=== PATIENT | female | born 1995 | race Caucasian/White ===

== ENCOUNTER 2017-01-14 20:58 | Emergency (ER) | payer OTHER ==
--- NOTE | 2017-01-14 22:37 | ED NURSING NOTES ---
Clinical Report - Nurses [facility] [address] [place] [address] 01/14/2017 21:00 Patient: BOB OLIVARES TRIAGE Triage time 2100. Acuity: LEVEL 4. Chief Complaint: FALL (pt fell over babygate and down 3 stairs ont concreate with left side of chest wall event occured approx 2 weeks ago. c/o increased pain with deep breathing, coughing or movement). --21:12 Darya Gibson R.N. 21:00 01/14/17. BP: 138/83. HR: 96. RR: 18. O2 saturation: 97%. Temp: 98.2 F. Pain level now: 08/01. --21:12 Darya Gibson R.N. Weight: 84.8 kg stated. Height/Length: 63 inches Per Patient. BMI: 33.1. --21:11 Darya Gibson R.N. Allergies Unknown. --13:18 Uri Smiley R.N. History Arrived by private vehicle. Historian: patient. Accompanied by family. Primary physician (izaiah). This occurred (2 weeks ago). ( c/o pain to left rib area). No loss of consciousness. PAST MEDICAL HX: Last normal menstrual period- 3weeks. SURGERY HX: Cholecystectomy. SOCIAL HX: Light tobacco smoker (cigarette)- less than 1/2 a pack per day. Occasional alcohol use. History of drug use: marijuana. --21:12 Darya Gibson R.N. PROBLEMS: Back Pain. Sprain. Cellulitis. Pharyngitis. Asthma. Raynaud's Phenomenon. Headaches. Fibromyalgia. Juvenile Rheumatoid Arthritis. --21:09 Darya Gibson R.N. Interventions ID band on patient. To treatment room. --21:12 Darya Gibson R.N. PHYSICAL ASSESSMENT 21:00. Ambulatory to room. GENERAL / NEURO / PSYCH: Alert. Oriented X 4. Appears in no acute distress. RESPIRATORY: Respirations not labored. ( pain to left rib area, hurts more with deep breath or cough). CVS: Capillary refill less than 2 seconds. GI / : Abdomen soft. SKIN: Skin is warm and dry. --21:13 Darya Gibson R.N. NURSING PROGRESS NOTES 21:00. Extremity elevated. Patient gowned. Reassurance given. Patient identifiers checked. Call light placed in reach. Side rails up. Bed placed in lowest position. Patient ready for evaluation- chart flagged. --21:12 Darya Gibson R.N. 21:19 01/14/17. Care transferred and report given (Uri Arenas, EDRN). --21:19 Darya Gibson R.N. 22:42 01/14/2017 Hydrocodone-APAP (Hydrocodone-Acetaminophen) PO 5/325 mg Tablets 1 tab given. Allergies verified, confirmed 5 rights and sedative warning given to the patient. --22:42 Uri Smiley R.N. DISPOSITION / DISCHARGE Departure time: 22:48 Jan 14 2017. Condition at departure: improved. No learning barriers present. Discharge instructions provided and reviewed with the patient. Reviewed warnings. Reviewed medication(s). Treatments reviewed. Patient verbalized understanding. Written instructions provided in Icelandic. The patient was discharged by the nurse practitioner. She was discharged home and accompanied by family. She left the Emergency Department ambulatory and via private vehicle. Family member driving. --22:48 Uri Smiley R.N. 22:47 01/14/17. BP: 146/96. HR: 86. RR: 18. O2 saturation: 100%. Temp: 98.5 F. Pain level now 6/10. --22:48 Uri Smiley R.N. Locked/Released at 01/23/2017 13:19 by Uri Smiley R.N.
--- NOTE | 2017-01-14 22:37 | ED ORDER SUMMARY ---
..... Patient: BOB OLIVARES OrderSheet [facility] VisitID: [id number] [address] [place] [address] 21y, F Registration Date/Time: 01/14/2017 ORDER SHEET Weight: 84.8 kg (stated) Allergies: Unknown GENERAL ORDERS: Ribs Unilat w PA Chest Left Urgent (21:23 01/14/2017 HBivens A.R.N.P.) (Ack 21:32 Padmaja ER Correctional Officer Captain) (21:40 [facility]) MEDICATION ORDERS: Hydrocodone-APAP PO 5/325 mg (NOW, HIGH ALERT MEDICATION) (22:37 01/14/2017 HBivens A.R.N.P.) (22:42 Marquez R.N.) IV FLUIDS: ORDER SHEET NOTES: [Electronically signed by Maria CaicedoR.N.P. (13:35 01/15/2017)] [Electronically signed by Uri Smiley RKenjiNKenji (13:19 01/23/2017)] [Electronically locked/signed by Uri SmileyNKenji (13:19 01/23/2017)]
--- NOTE | 2017-01-14 22:37 | ED NURSING NOTES ---
Clinical Report - Nurses [facility] [address] [place] [address] 01/14/2017 21:00 Patient: BOB OLIVARES TRIAGE Triage time 2100. Acuity: LEVEL 4. Chief Complaint: FALL (pt fell over babygate and down 3 stairs ont concreate with left side of chest wall event occured approx 2 weeks ago. c/o increased pain with deep breathing, coughing or movement). --21:12 Darya Gibson R.N. 21:00 01/14/17. BP: 138/83. HR: 96. RR: 18. O2 saturation: 97%. Temp: 98.2 F. Pain level now: 08/01. --21:12 Darya Gibson R.N. Weight: 84.8 kg stated. Height/Length: 63 inches Per Patient. BMI: 33.1. --21:11 Darya Gibson R.N. Allergies Unknown. --13:18 Uri Smiley R.N. History Arrived by private vehicle. Historian: patient. Accompanied by family. Primary physician (izaiah). This occurred (2 weeks ago). ( c/o pain to left rib area). No loss of consciousness. PAST MEDICAL HX: Last normal menstrual period- 3weeks. SURGERY HX: Cholecystectomy. SOCIAL HX: Light tobacco smoker (cigarette)- less than 1/2 a pack per day. Occasional alcohol use. History of drug use: marijuana. --21:12 Darya Gibson R.N. PROBLEMS: Back Pain. Sprain. Cellulitis. Pharyngitis. Asthma. Raynaud's Phenomenon. Headaches. Fibromyalgia. Juvenile Rheumatoid Arthritis. --21:09 Darya Gibson R.N. Interventions ID band on patient. To treatment room. --21:12 Darya Gibson R.N. PHYSICAL ASSESSMENT 21:00. Ambulatory to room. GENERAL / NEURO / PSYCH: Alert. Oriented X 4. Appears in no acute distress. RESPIRATORY: Respirations not labored. ( pain to left rib area, hurts more with deep breath or cough). CVS: Capillary refill less than 2 seconds. GI / : Abdomen soft. SKIN: Skin is warm and dry. --21:13 Darya Gibson R.N. NURSING PROGRESS NOTES 21:00. Extremity elevated. Patient gowned. Reassurance given. Patient identifiers checked. Call light placed in reach. Side rails up. Bed placed in lowest position. Patient ready for evaluation- chart flagged. --21:12 Darya Gibson R.N. 21:19 01/14/17. Care transferred and report given (Uri Arenas, EDRN). --21:19 Darya Gibson R.N. 22:42 01/14/2017 Hydrocodone-APAP (Hydrocodone-Acetaminophen) PO 5/325 mg Tablets 1 tab given. Allergies verified, confirmed 5 rights and sedative warning given to the patient. --22:42 Uri Smiley R.N. DISPOSITION / DISCHARGE Departure time: 22:48 Jan 14 2017. Condition at departure: improved. No learning barriers present. Discharge instructions provided and reviewed with the patient. Reviewed warnings. Reviewed medication(s). Treatments reviewed. Patient verbalized understanding. Written instructions provided in Khmer. The patient was discharged by the nurse practitioner. She was discharged home and accompanied by family. She left the Emergency Department ambulatory and via private vehicle. Family member driving. --22:48 Uri Smiley R.N. 22:47 01/14/17. BP: 146/96. HR: 86. RR: 18. O2 saturation: 100%. Temp: 98.5 F. Pain level now 6/10. --22:48 Uri Smiley R.N. Locked/Released at 01/23/2017 13:19 by Uri Smiley R.N.
--- NOTE | 2017-01-14 22:37 | ED CLINICAL REPORT ---
Clinical Report - Physicians/Mid Levels [facility] [address] [place] [address] 01/14/2017 21:00 Patient: BOB OLIVARES Time Seen: 21:14; initial patient contact, initial documentation, patient care assumed. Arrived- By private vehicle. Historian- patient. HISTORY OF PRESENT ILLNESS Chief Complaint: Injury to CHEST. Location of injuries- chest. The injury occurred about 2 weeks ago. Fell down a few stairs while walking and landed on a concrete surface. The patient complains of severe pain. No blow to the head, neck pain, loss of consciousness or seizure. Not dazed. states she fell down a few stairs and went to another er after the incident, no xrays done, given rx meloxicam and something else, still hurts, no f/u. REVIEW OF SYSTEMS No numbness, weakness or laceration. She has had chest pain. All systems otherwise negative, except as recorded above. PAST HISTORY See nurses notes. PROBLEMS: Back Pain. Sprain. Cellulitis. Pharyngitis. Asthma. Raynaud's Phenomenon. Headaches. Fibromyalgia. Juvenile Rheumatoid Arthritis. --21:09 ArthurDarya R.N. SOCIAL HISTORY Light tobacco smoker. Occasional alcohol use. History of occasional drug use: marijuana. No recent travel. Is a local resident. FAMILY HISTORY No significant family medical history. ADDITIONAL NOTES The nursing notes have been reviewed with agreement regarding the chief complaint, HPI, ROS, PMH and patient medications and allergies. PHYSICAL EXAM Vital Signs: 01/14/2017 21:00 BP: 138/83. HR: 96. RR: 18. O2 saturation: 97%. Temp: 98.2 F. Pain level now: 9/10. Have been reviewed as normal and appear to be correct. Appearance: Alert. Oriented X3. No acute distress. Head: Head non-tender. No swelling of head. Eyes: Pupils equal, round and reactive to light. EOM intact. ENT: No dental injury. Pharynx normal. Neck: Painless ROM. Non-tender. CVS: Heart sounds normal. Pulses normal. Respiratory: Chest tender. Chest wall injury: mild tenderness located in the middle, central and anterior chest. No swelling. No laceration. No abrasion. No ecchymosis. No deformity. No injury to the costal cartilage, sternum, manubrium or xiphoid. No splinting present. No paradoxical movement. Breath sounds normal. Back: No tenderness. ROM normal. Skin: Skin intact. Skin warm and dry. Normal skin color. Normal skin turgor. Extremities: Normal inspection. Pelvis stable. Extremities atraumatic. No lower extremity edema. Neuro: Oriented X 3. No motor deficit. No sensory deficit. LABS, X-RAYS, AND EKG X-Rays: X-rays are normal and reveal no acute disease (and reviewed by dr reardon). Rib series negative. The X-rays were independently viewed by me. PROGRESS AND PROCEDURES Patient and family counseled in person regarding the patient's stable condition, test results and diagnosis. 22:37. Differential Diagnosis: Other possible considerations: substance abuse, rib fx, internal injury, contusion, fall, chest wall strain. Above considerations are based on history, physical exam and X-Ray data. Differential diagnosis was discussed with patient. Disposition: Discharged home in good and improved condition (22:37). Condition: good and stable. CLINICAL IMPRESSION Muscle strain of the anterior chest wall. Fall on same level by tripping. INSTRUCTIONS Warnings: GENERAL WARNINGS: Return or contact your physician immediately if your condition worsens or changes unexpectedly, if not improving as expected, or if other problems arise. SPECIFICALLY, return if you develop any problems. trouble breathing. Prescription Medications: Ultram 50 mg tablets: take 1-2 orally every 6 hours as needed for pain. Dispense twenty (20). No refills. Substitution is permissible. Follow-up: Follow up with your doctor in about weeks as needed. Call for an appointment. Summary of care provided to patient. Understanding of the discharge instructions verbalized by patient. (Electronically signed by Maria Caicedo A.R.N.P. 01/15/2017 13:35)
--- NOTE | 2017-01-14 22:37 | ED ORDER SUMMARY ---
..... Patient: BOB OLIVARES OrderSheet [facility] VisitID: [id number] [address] [place] [address] 21y, F Registration Date/Time: 01/14/2017 ORDER SHEET Weight: 84.8 kg (stated) Allergies: Unknown GENERAL ORDERS: Ribs Unilat w PA Chest Left Urgent (21:23 01/14/2017 HBivens A.R.N.P.) (Ack 21:32 Padmaja ER Charging Machine Operator) (21:40 [facility]) MEDICATION ORDERS: Hydrocodone-APAP PO 5/325 mg (NOW, HIGH ALERT MEDICATION) (22:37 01/14/2017 HBivens A.R.N.P.) (22:42 Marquez R.N.) IV FLUIDS: ORDER SHEET NOTES: [Electronically signed by Maria CaicedoR.N.P. (13:35 01/15/2017)] [Electronically signed by Uri Smiley RKenjiNKenji (13:19 01/23/2017)] [Electronically locked/signed by Uri SmileyNKenji (13:19 01/23/2017)]
--- NOTE | 2017-01-15 06:05 | DIAGNOSTIC IMAGING REPORT ---
PROCEDURE: XR RIBS UNILAT W/PA CHEST-LT INDICATION: TRAUMA/INJURY TECHNIQUE: Three views of the left ribs with single PA view chest. COMPARISON: None. FINDINGS: LEFT RIBS: No fracture or suspicious osseous lesion. CHEST: Lungs are clear. Heart size, mediastinum and pulmonary vessels are normal. IMPRESSION: 1. Negative chest and left ribs.
--- NOTE | 2017-01-23 13:19 | ED MAR SUMMARY ---
..... Medication Administration Record [facility] [address] [place] [address] Patient: BOB OLIVARES Visit ID: [id number] 21y, F Weight: 84.8 kg Height/Length: 63 in BMI: 33.1 ALLERGIES: Unknown Given 22:42 01/14/2017 Uri Smiley R.N. Medication Administered: HYDROCODONE-APAP [PO] (HYDROCODONE-ACETAMINOPHEN), Dose: 1 tab 5/325 mg Tablets PO. Medication Ordered: Hydrocodone-APAP PO 5/325 mg (NOW, HIGH ALERT MEDICATION).
--- NOTE | 2017-01-23 13:19 | ED MED RECONCILIATION SUMMARY ---
Patient: BOB OLIVARES Medication Reconciliation Report [facility] VisitID: [id number] [address] [place] [address] 21y, F Registration Date/Time: 01/14/2017 Weight: 84.8 kg Height/Length: 63 in. BMI: 33.1 ALLERGIES: Unknown The patient's Home Medications are listed below: Not obtained. The source(s) of the original Home Medication information: Not obtained. The following Medications were given to the patient in the Emergency Department: Hydrocodone-APAP [PO] PO 1 tab, administered: 01/14/2017 10:42:00 PM The following Medications were prescribed to the patient: Ultram 50 mg tablets: take 1-2 orally every 6 hours as needed for pain. Dispense twenty (20). No refills. Substitution is permissible. -- Maria Caicedo A.R.N.P.
--- NOTE | 2017-01-23 13:19 | ED DISCHARGE INSTRUCTIONS ---
Patient: BOB OLIVARES General Instructions [facility] VisitID: [id number] [place] [place] [address] 21y, F Registration Date/Time: 01/14/2017 Muscle strain of the anterior chest wall. Fall on same level by tripping. INSTRUCTIONS Warnings: GENERAL WARNINGS: Return or contact your physician immediately if your condition worsens or changes unexpectedly, if not improving as expected, or if other problems arise. SPECIFICALLY, return if you develop any problems. trouble breathing. Prescription Medications: Ultram 50 mg tablets: take 1-2 orally every 6 hours as needed for pain. Dispense twenty (20). No refills. Substitution is permissible. Follow-up: Follow up with your doctor in about weeks as needed. Call for an appointment. Summary of care provided to patient. Understanding of the discharge instructions verbalized by patient. ADDITIONAL INFORMATION Mechanical Fall You have had a fall today. It appears that the cause is mechanical. That means that you slipped, tripped or lost your balance. If your fall had been due to fainting or a seizure, further tests would be required. Home Care: Rest today and resume your normal activities when you are feeling back to normal. If you were injured during the fall, follow the advice from your doctor regarding care of your injury. You may use acetaminophen (Tylenol) or ibuprofen (Motrin, Advil) to control pain, unless another pain medicine was prescribed. [NOTE: If you have chronic liver or kidney disease or ever had a stomach ulcer or GI bleeding, talk with your doctor before using these medicines.] Fall Prevention: Was there anything that caused your fall that can be fixed, removed, or replaced? Make your home safe by keeping walkways clear of objects you may trip over. Use non-slip pads under rugs. Do not walk in poorly lit areas. Do not stand on chairs or wobbly ladders. Use caution when reaching overhead or looking upward. This position can cause a loss of balance. Be sure your shoes fit properly, have non-slip bottoms and are in good condition. Be cautious when going up and down curbs, and walking on uneven sidewalks. If your balance is poor, consider using a cane or walker. Stay as active as you can. Balance, flexibility, strength, and endurance all come from exercise. They all play a role in preventing falls. Follow Up with your doctor or as advised by our staff. Get Prompt Medical Attention if any of the following occur: Repeated mechanical falls, or unexplained falls Dizziness, fainting or seizure Severe headache Chest pain or shortness of breath Palpitations (very rapid or very slow or irregular heartbeat) Blood in vomit, stools (black or red color) Weakness of an arm or leg or one side of the face Difficulty with speech or vision Chest Strain A strain of the chest is due to stretching and tearing of the muscle fibers between the ribs. This may occur as a result of severe coughing, strenuous lifting or twisting injuries of the upper back. This usually causes increased pain with movement or deep breathing. This may take a few days to a few weeks to heal. Home Care: Rest. Avoid heavy lifting or strenuous exertion. Avoid any activity that causes pain. If you have a severe cough, use a cough syrup such as Robitussin DM (containing dextromethorphan) unless another cough medicine was prescribed. You may use acetaminophen (Tylenol) or ibuprofen (Motrin, Advil) to control pain, unless another medicine was prescribed. [ NOTE: If you have chronic liver or kidney disease or ever had a stomach ulcer or GI bleeding, talk with your doctor before using these medicines.] Follow Up with your doctor as directed. Get Prompt Medical Attention if any of the following occur: A change in the type of pain: if it feels different, becomes more severe, lasts longer, or begins to spread into your shoulder, arm, neck, jaw or back Shortness of breath or increased pain with breathing Cough with dark colored sputum (phlegm) or blood Weakness, dizziness, or fainting Fever of 100.4F (38C) or higher, or as directed by your healthcare provider Tramadol Hydrochloride Oral tablet What is this medicine? TRAMADOL (TRA ma dole) is a pain reliever. It is used to treat moderate to severe pain in adults. How should I use this medicine? Take this medicine by mouth with a full glass of water. Follow the directions on the prescription label. If the medicine upsets your stomach, take it with food or milk. Do not take more medicine than you are told to take. Talk to your turbine assembler regarding the use of this medicine in children. Special care may be needed. What side effects may I notice from receiving this medicine? Side effects that you should report to your doctor or health long term care pharmacist as soon as possible: allergic reactions like skin rash, itching or hives, swelling of the face, lips, or tongue breathing difficulties, wheezing confusion itching light headedness or fainting spells redness, blistering, peeling or loosening of the skin, including inside the mouth seizures Side effects that usually do not require medical attention (report to your doctor or health long term care pharmacist if they continue or are bothersome): constipation dizziness drowsiness headache nausea, vomiting What may interact with this medicine? Do not take this medicine with any of the following medications: MAOIs like Carbex, Eldepryl, Marplan, Nardil, and Parnate This medicine may also interact with the following medications: alcohol or medicines that contain alcohol antihistamines benzodiazepines bupropion carbamazepine or oxcarbazepine clozapine cyclobenzaprine digoxin furazolidone linezolid medicines for depression, anxiety, or psychotic disturbances medicines for migraine headache like almotriptan, eletriptan, frovatriptan, naratriptan, rizatriptan, sumatriptan, zolmitriptan medicines for pain like pentazocine, buprenorphine, butorphanol, meperidine, nalbuphine, and propoxyphene medicines for sleep muscle relaxants naltrexone phenobarbital phenothiazines like perphenazine, thioridazine, chlorpromazine, mesoridazine, fluphenazine, prochlorperazine, promazine, and trifluoperazine procarbazine warfarin What if I miss a dose? If you miss a dose, take it as soon as you can. If it is almost time for your next dose, take only that dose. Do not take double or extra doses. Where should I keep my medicine? Keep out of the reach of children. Store at room temperature between 15 and 30 degrees C (59 and 86 degrees F). Keep container tightly closed. Throw away any unused medicine after the expiration date. What should I tell my health care provider before I take this medicine? They need to know if you have any of these conditions: brain tumor depression drug abuse or addiction head injury if you frequently drink alcohol containing drinks kidney disease or trouble passing urine liver disease lung disease, asthma, or breathing problems seizures or epilepsy suicidal thoughts, plans, or attempt; a previous suicide attempt by you or a family member an unusual or allergic reaction to tramadol, codeine, other medicines, foods, dyes, or preservatives or trying to get breast-feeding What should I watch for while using this medicine? Tell your doctor or health long term care pharmacist if your pain does not go away, if it gets worse, or if you have new or a different type of pain. You may develop tolerance to the medicine. Tolerance means that you will need a higher dose of the medicine for pain relief. Tolerance is normal and is expected if you take this medicine for a long time. Do not suddenly stop taking your medicine because you may develop a severe reaction. Your body becomes used to the medicine. This does NOT mean you are addicted. Addiction is a behavior related to getting and using a drug for a non-medical reason. If you have pain, you have a medical reason to take pain medicine. Your doctor will tell you how much medicine to take. If your doctor wants you to stop the medicine, the dose will be slowly lowered over time to avoid any side effects. You may get drowsy or dizzy. Do not drive, use machinery, or do anything that needs mental alertness until you know how this medicine affects you. Do not stand or sit up quickly, especially if you are an older patient. This reduces the risk of dizzy or fainting spells. Alcohol can increase or decrease the effects of this medicine. Avoid alcoholic drinks. You may have constipation. Try to have a bowel movement at least every 2 to 3 days. If you do not have a bowel movement for 3 days, call your doctor or health long term care pharmacist. Your mouth may get dry. Chewing sugarless gum or sucking hard candy, and drinking plenty of water may help. Contact your doctor if the problem does not go away or is severe. You have been given the following additional information: Fall, Mechanical Chest Wall Strain Tramadol Hydrochloride Oral tablet (Electronically signed by Maria Caicedo A.R.N.P. 01/15/2017 13:35)
--- NOTE | 2017-01-23 13:19 | ED MAR SUMMARY ---
..... Medication Administration Record [facility] [address] [place] [address] Patient: BOB OLIVARES Visit ID: [id number] 21y, F Weight: 84.8 kg Height/Length: 63 in BMI: 33.1 ALLERGIES: Unknown Given 22:42 01/14/2017 Uri Smiley R.N. Medication Administered: HYDROCODONE-APAP [PO] (HYDROCODONE-ACETAMINOPHEN), Dose: 1 tab 5/325 mg Tablets PO. Medication Ordered: Hydrocodone-APAP PO 5/325 mg (NOW, HIGH ALERT MEDICATION).
--- NOTE | 2017-01-23 13:19 | ED MED RECONCILIATION SUMMARY ---
Patient: BOB OLIVARES Medication Reconciliation Report [facility] VisitID: [id number] [address] [place] [address] 21y, F Registration Date/Time: 01/14/2017 Weight: 84.8 kg Height/Length: 63 in. BMI: 33.1 ALLERGIES: Unknown The patient's Home Medications are listed below: Not obtained. The source(s) of the original Home Medication information: Not obtained. The following Medications were given to the patient in the Emergency Department: Hydrocodone-APAP [PO] PO 1 tab, administered: 01/14/2017 10:42:00 PM The following Medications were prescribed to the patient: Ultram 50 mg tablets: take 1-2 orally every 6 hours as needed for pain. Dispense twenty (20). No refills. Substitution is permissible. -- Maria Caicedo A.R.N.P.
== END 2017-01-14 22:47 | disposition still patient (30) ==
LOC: ED SRH 20:58
DX: S29.011A Strain of muscle and tendon of front wall of thorax, initial encounter (principal); W10.9XXA Fall (on) (from) unspecified stairs and steps, initial encounter; Y93.01 Activity, walking, marching and hiking; Y92.9 Unspecified place or not applicable; Y99.9 Unspecified external cause status